=== PATIENT | female | born 1990 | race Caucasian/White ===

== ENCOUNTER 2016-06-13 01:09 | Emergency (ER) | payer SELFPAY ==
[~2016-06-13] VITALS: Ht 162.6 cm; Wt 71.1 kg
[~2016-06-13 01:09] MED LIST: SULF800T23 PO
[2016-06-13 01:11] VITALS: TEMP 36.7; Ht 162.6 cm; Wt 71.1 kg
[2016-06-13 02:25] LABS: BASO % 0.1 %; BASO ABS # 0.01 K/uL (0-0.2); COMPLETE YES; EOS % 0.6 %; HEMATOCRIT 43.5 % (37-47); IG% 0.2 %; LYMPH % 21.3 %; LYMPH ABS # 2.53 K/uL (1.2-3.4); MEAN CELL VOLUME 91.6 fL (80-100); MEAN CORPUSCULAR HEMOGLOBIN 32.4 pg (25-34); MEAN CORPUSCULAR HGB CONC 35.4 g/dl (32-36); MEAN PLATELET VOLUME 12.1 fL (7.4-10.4); MONO % 6.1 %; NEUT % 71.7 %; PLATELET COUNT 205 K/uL (130-400); RED BLOOD COUNT 4.75 M/uL (4.2-5.4); WHITE BLOOD COUNT 11.88 K/uL (4.8-10.8)
[2016-06-13 02:46] LABS: BUN/CREATININE RATIO 8.1 (10-20); CALCIUM 8.6 mg/dl (8.5-10.1); CREATININE 0.85 mg/dl (0.60-1.20); POTASSIUM 3.5 mmol/L (3.5-5.1)
[2016-06-13 02:56] LABS: THYROID STIMULATING HORMONE 1.05 uIu/ml (0.300-4.500)
[2016-06-13 03:03] LABS: ACETAMINOPHEN < 2 ug/ml (10-30)
[2016-06-13 03:43] LABS: BENZODIAZEPINE, URINE NEG (NEG); COCAINE,URINE NEG (NEG); PHENCYCLIDINE, URINE NEG (NEG)
[2016-06-13 03:50] LABS: MANUAL MICROSCOPIC REQUIRED? YES; URINE APPEARANCE CLOUDY (CLEAR); URINE BILIRUBIN NEG (NEG); URINE COLOR RED; URINE NITRITE NEG (NEG); URINE PH 6.5 (4.5-7.5); UROBILINOGEN NEG (NEG)
[2016-06-13 03:51] LABS: REVIEW REQ? NO
[2016-06-13 03:52] LABS: URINE BACTERIA NEG (NEG); URINE RBC >30 /hpf (0-4); ZZUR CULT IF INDIC CLEAN CATCH NO
[2016-06-13 04:51] VITALS: BP 126/77; PULSE 83; O2SAT 97
--- NOTE | 2016-06-13 05:27 | EMERGENCY ROOM VISIT NOTE ---
History Report prepared by Floyd: Alex Herrera Under the Supervision of: Dr. Meredith Chau M.D. First contact with patient: 01:55 Chief Complaint: MENTAL HEALTH EVALUATION Stated Complaint: MENTAL HEALTH History of Present Illness This HPI is limited due to poor patient cooperation. The patient is a 26 year old female who presents to the Emergency Room for a mental health evaluation following a dispute with her ex-boyfriend that occurred shortly prior to arrival. The patient states that the ex-boyfriend kept entering the bathroom while she was trying to take a shower. She became increasingly agitated as the boyfriend continued to enter the bathroom unwelcomed. The boyfriend states that the patient became increasingly angry and claimed that she was going to cut herself. He then phoned the police who brought the patient to the emergency department. Source of History: patient Onset: Shortly INTERNET CONSULTANT Position: other (Psych) Quality: other (Mental Health Evaluation) Note: Boyfriend states that patient threatened to cut herself. Review of Systems See HPI for pertinent positives & negatives. A total of 10 systems reviewed and were otherwise negative. Past Medical & Surgical Medical Problems: (1) 2 previous pregnancies Family History Patient reports no known family medical history. Social History Smoking Status: Current Every Day Smoker Alcohol Use: none Drug Use: none Marital Status: single Housing Status: lives with family Occupation Status: employed Current/Historical Medications No Active Prescriptions or Reported Meds Allergies Coded Allergies: No Known Allergies (Unverified , 06/13/16) Physical Exam Vital Signs Date Time Temp Pulse Resp B/P Pulse Ox O2 Delivery O2 Flow Rate FiO2 06/13/16 04:51 83 20 126/77 97 Room Air 06/13/16 03:44 90 16 123/78 97 Room Air 06/13/16 01:11 36.7 100 18 135/93 100 Room Air Pain Rating (0-10): 0 Physical Exam Vital signs reviewed. General: Well-appearing female, in no significant distress. HEENT: Poor Dentition. No scleral icterus, PERRLA, neck supple. Atraumatic. Cardiovascular: Regular rate and rhythm, no extra sounds. Pulmonary: Clear to auscultation bilaterally, normal work of breathing. Abdomen: Soft, nontender, nondistended, positive bowel sounds. Musculoskeletal: Atraumatic, no peripheral edema. Neurologic: Patient awake alert and oriented x 3, full strength in all 4 extremities. Cranial nerves 2 through 12 grossly intact. Skin: Warm, dry, no rash Psych: No suicidal, no homicidal ideation. Medical Decision & Procedures Laboratory Results 06/13/16 02:16 Red Blood Count 4.75, Mean Corpuscular Volume 91.6, Mean Corpuscular Hemoglobin 32.4, Mean Corpuscular Hemoglobin Concent 35.4, Mean Platelet Volume 12.1, Neutrophils (%) (Auto) 71.7, Lymphocytes (%) (Auto) 21.3, Monocytes (%) (Auto) 6.1, Eosinophils (%) (Auto) 0.6, Basophils (%) (Auto) 0.1, Neutrophils # (Auto) 8.52, Lymphocytes # (Auto) 2.53, Monocytes # (Auto) 0.73, Eosinophils # (Auto) 0.07, Basophils # (Auto) 0.01 06/13/16 02:16 Test 06/13/16 02:16 06/13/16 02:41 White Blood Count 11.88 K/uL (4.8-10.8) Red Blood Count 4.75 M/uL (4.2-5.4) Hemoglobin 15.4 g/dL (12.0-16.0) Hematocrit 43.5 % (37-47) Mean Corpuscular Volume 91.6 fL (80-100) Mean Corpuscular Hemoglobin 32.4 pg (25-34) Mean Corpuscular Hemoglobin Concent 35.4 g/dl (32-36) Platelet Count 205 K/uL (130-400) Mean Platelet Volume 12.1 fL (7.4-10.4) Neutrophils (%) (Auto) 71.7 % Lymphocytes (%) (Auto) 21.3 % Monocytes (%) (Auto) 6.1 % Eosinophils (%) (Auto) 0.6 % Basophils (%) (Auto) 0.1 % Neutrophils # (Auto) 8.52 K/uL (1.4-6.5) Lymphocytes # (Auto) 2.53 K/uL (1.2-3.4) Monocytes # (Auto) 0.73 K/uL (0.11-0.59) Eosinophils # (Auto) 0.07 K/uL (0-0.5) Basophils # (Auto) 0.01 K/uL (0-0.2) RDW Standard Deviation 42.3 fL (36.4-46.3) RDW Coefficient of Variation 12.5 % (11.5-14.5) Immature Granulocyte % (Auto) 0.2 % Immature Granulocyte # (Auto) 0.02 K/uL (0.00-0.02) Anion Gap 7.0 mmol/L (3-11) Est Creatinine Clear Calc Drug Dose 95.3 ml/min Estimated GFR () 108.1 Estimated GFR (Non- 93.2 BUN/Creatinine Ratio 8.1 (10-20) Calcium Level 8.6 mg/dl (8.5-10.1) Total Bilirubin 0.3 mg/dl (0.2-1) Direct Bilirubin 0.1 mg/dl (0-0.2) Aspartate Amino Transf (AST/SGOT) 8 U/L (15-37) Alanine Aminotransferase (ALT/SGPT) 15 U/L (12-78) Alkaline Phosphatase 75 U/L (45-117) Total Protein 7.5 gm/dl (6.4-8.2) Albumin 3.9 gm/dl (3.4-5.0) Thyroid Stimulating Hormone (TSH) 1.050 uIu/ml (0.300-4.500) Salicylates Level 4.4 mg/dl (2.8-20) Acetaminophen Level < 2 ug/ml (10-30) Ethyl Alcohol mg/dL < 3.0 mg/dl (0-3) Urine Color RED Urine Appearance CLOUDY (CLEAR) Urine pH 6.5 (4.5-7.5) Urine Specific Limestone 1.010 (1.000-1.030) Urine Protein TRACE (NEG) Urine Glucose (UA) NEG (NEG) Urine Ketones NEG (NEG) Urine Occult Blood 3+ (NEG) Urine Nitrite NEG (NEG) Urine Bilirubin NEG (NEG) Urine Urobilinogen NEG (NEG) Urine Leukocyte Esterase NEG (NEG) Urine RBC >30 /hpf (0-4) Urine WBC 1-5 /hpf (0-5) Urine Epithelial Cells 5-10 /lpf (0-5) Urine Bacteria NEG (NEG) Urine Test NEG (NEG) Urine Opiates Screen NEG (NEG) Urine Methadone, Qualitative NEG (NEG) Urine Barbiturates NEG (NEG) Urine Phencyclidine (PCP) Level NEG (NEG) Ur Amphetamine/Methamphetamine NEG (NEG) MDMA (Ecstasy) Screen NEG (NEG) Urine Benzodiazepines Screen NEG (NEG) Urine Cocaine Metabolite NEG (NEG) Urine Marijuana (THC) NEG (NEG) Laboratory results per my review. ED Course 0259: Past medical records reviewed. The patient was evaluated in room A7. A complete history and physical examination was performed. 0524: Upon reevaluation, the patient has agreed to a safety plan developed with the aid of the case manger. The patient will be discharged home. Medical Decision The patient's history was concerning for possible psychiatric disturbance. Differential diagnosis: Etiologies such as mood disorder, infection, hypoglycemia, electrolyte abnormalities, cardiac sources, intracerebral event, toxicologic, neurologic, as well as others were entertained. This patient was evaluated and appeared to be in no significant distress. Patient was medically cleared and evaluated by mental health. The patient denies any suicidal ideation or intent tonight. She denies any cutting. Patient states she has never been under mental health treatment, nor does she take any medications. She does have an interesting social situation where she lives with her ex boyfriend and 2 children, but intends to move in with her new boyfriend shortly. There does seem to be some emotional turmoil in the household. Patient denies any safety issues at this time. She was discharged to home and will follow-up with her primary care provider this week for reevaluation. She will return to the ER for worsening of symptoms or any medical concerns. Impression Primary Impression: Mental health-related complaint Scribe Attestation The scribe's documentation has been prepared under my direction and personally reviewed by me in its entirety. I confirm that the note above accurately reflects all work, treatment, procedures, and medical decision making performed by me. Departure Information Dispostion Home / Self-Care Prescriptions No Active Prescriptions or Reported Meds Referrals Can Help Forms HOME CARE DOCUMENTATION FORM, IMPORTANT VISIT INFORMATION Patient Instructions My [facility] Additional Instructions Diagnosis: Mental health assessment Please follow-up with your primary care provider this week for reevaluation. Schedule an appointment with a dentist as soon as possible for a dental cleaning and evaluation of your tooth pain. Return to the emergency department for worsening of symptoms or any medical concerns.
[2016-06-18 19:28] LABS: SYNTHETIC CANNABINOIDS QL URIN NEGATIVE (Negative)
== END 2016-06-13 05:07 | disposition home or self-care (01) ==
LOC: C.EDB 01:10 → C.EDA 05:07
DX: Z00.8 Encounter for other general examination (principal); F17.200 Nicotine dependence, unspecified, uncomplicated

== ENCOUNTER 2016-07-07 18:51 | Emergency (ER) | payer SELFPAY ==
[~2016-07-07] VITALS: Ht 162.6 cm; Wt 72.8 kg
[2016-07-07 18:54] VITALS: BP 128/81; PULSE 78; TEMP 36.8; O2SAT 97; Ht 162.6 cm; Wt 72.8 kg
[2016-07-07] MEDS ORDERED: HYDR-5688 PO (19:14)
[2016-07-07] MEDS ORDERED: PENI500T2 PO (19:14)
--- NOTE | 2016-07-07 19:15 | EMERGENCY ROOM VISIT NOTE ---
ED Visit Note First contact with patient: 19:01 CHIEF COMPLAINT: Right lower dental pain 1 week HISTORY OF PRESENT ILLNESS: Patient is a 26-year-old white female who presents the emergency department for evaluation of right lower dental pain. She reports that she believes that she has a cavity, and has been bad for several months. It only became painful this week. She has been taking 800 mg of ibuprofen and using topical Orajel, but still reports pain that she rates a 10/ 10 presently. She does not have dental insurance and has not contacted a dentist. She denies any possible fluid in her mouth, no facial swelling or fever. REVIEW OF SYSTEMS: Review of systems as per HPI. All other systems reviewed were negative. At least 6 systems reviewed. PMH: Electronic medical records are reviewed and summarized as above/below. See Problem List. SOCIAL HISTORY: Patient lives at home. Smoker. Unemployed. PHYSICAL EXAM: Vital Signs: Reviewed Nurse's notes. CONSTITUTIONAL: Patient is a well-appearing 18-year-old white female who is awake and alert and in no acute distress. Vital signs are stable. EARS: Tympanic membranes intact, not inflamed, have normal contour. External canals clear. MOUTH: Overall the patient has poor dentition. The right lower rear molar in question has an obvious cavity, and is tender to percussion. There is slight swelling along the gumline although no focal abscess. Mucous membranes moist, no lesions, tongue and gums appear normal. THROAT: No pharyngeal injection, exudates, or tonsillar hypertrophy. Airway is patent. No trismus noted. FACE: No facial swelling is appreciated. No cellulitic changes. NECK: No lymphadenopathy. . ED course: The patient was seen and assessed as above. She does not have any evidence for facial cellulitis, drainable abscess or Erickson's angina. She will be placed on Pen-Vee K and was given a small prescription for [place] to use for pain until she can follow-up with a dentist. Patient was reviewed in the [facility] Prescription Drug Monitoring Program, and there was no record noted for this patient. Problem List Medical Problems: (1) 2 previous pregnancies Status: Resolved (2) Lower abdominal pain Status: Resolved (3) Miscarriage Status: Resolved (4) Miscarriage Status: Resolved (5) Urinary tract infection Status: Resolved Current/Historical Medications Scheduled Penicillin V Potassium (Veetids), 500 MG PO QID [Oragel], 1 APPLN BU PRN Scheduled PRN Hydrocodone/Acetaminophen 5MG/325MG ([place] 5MG/325MG), 1-2 TABLETS PO Q4 PRN for Pain Ibuprofen (Advil), 800 MG PO TID PRN for Pain Allergies Coded Allergies: No Known Allergies (Unverified , 06/13/16) Vital Signs Date Time Temp Pulse Resp B/P Pulse Ox O2 Delivery O2 Flow Rate FiO2 07/07/16 18:54 36.8 78 20 128/81 97 Room Air Departure Information Impression Primary Impression: Dentalgia Prescriptions Hydrocodone/Acetaminophen 5MG/325MG ([place] 5MG/325MG) Tab 1-2 TABLETS PO Q4 Y for Pain, #20 TAB For Initial Treatment Prov: Jessica Mercado PA 07/07/16 Penicillin V Potassium (VEETIDS) 500 Mg Tab 500 MG PO QID, #40 TAB Prov: Jessica Mercado PA 07/07/16 Referrals No Doctor, Assigned (PCP) Casper Parada D.M.D. Patient Instructions My [facility] Additional Instructions Penicillin 500mg: Take one pill four times daily for 10 days for your dental infection. All antibiotics can cause diarrhea. If this occurs and you feel worse or it does not resolve in 1-2 days follow up with your doctor or return to the Emergency Department as this could be signs of serious underlying problems. Any medication can cause an allergic reaction, stop the pills immediately and return to the ER for rash, hives, breathing difficulties, or swelling. Ibuprofen(Motrin, Advil) may be used for fever or pain. Use 600mg every six hours as needed. Take with food. Avoid using more than 2400mg in a 24 hour period. Do not use 2400mg per day for more than three consecutive days without physician direction. Prolonged inappropriate use can lead to stomach upset or ulcers. (AND/OR) Acetaminophen(Tylenol) may be used for fever or pain. Use 1000mg every six hours as needed. Avoid using more than 4000mg in a 24 hour period. Hydrocodone/Acetaminophen ([place]) 5/325 mg: Take 1-2 pills every four hours for breakthrough pain. Avoid alcohol, operating machinery or dangerous equipment, working on ladders or roofs, DRIVING, or situations where being under the influence may be dangerous. It is recommended to use an [id number] stool softener such as Colace, 100mg twice daily while taking this medication to avoid constipation. Saltwater gargles after meals and before bedtime. Soft foods. Orajel/Anbesol/clove oil as needed for discomfort. Followup with your dentist for definitive management. You may also follow up with your primary care physician for pain/care management until you can be seen by your dentist.
[2016-07-07] MEDS ORDERED: IBUP-1050 PO (19:36)
[2016-07-07] MEDS ORDERED: ORAGEL BU (19:36)
== END 2016-07-07 19:27 | disposition home or self-care (01) ==
LOC: C.EDB 18:53 → C.EDD 19:27
DX: K08.89 Other specified disorders of teeth and supporting structures (principal); F17.200 Nicotine dependence, unspecified, uncomplicated

== ENCOUNTER 2016-07-25 16:07 | Emergency (ER) | payer SELFPAY ==
[~2016-07-25] VITALS: Ht 162.6 cm; Wt 71.6 kg
[~2016-07-25 16:07] MED LIST changes: +HYDR-5688 PO; +IBUP-1050 PO; +ORAGEL BU; -SULF800T23 PO
[2016-07-25 16:09] VITALS: TEMP 37; Ht 162.6 cm; Wt 71.6 kg
[2016-07-25] MEDS ORDERED: IBUP200T52 PO (16:21)
[2016-07-25] MEDS ORDERED: PENI-82 PO (16:25)
--- NOTE | 2016-07-25 16:32 | EMERGENCY ROOM VISIT NOTE ---
ED Visit Note First contact with patient: 16:12 CHIEF COMPLAINT: Toothache HISTORY OF PRESENT ILLNESS: This 26-year-old female patient presented to the emergency department with a progressive toothache for past 2 days. The patient believes it is coming from a right lower molar. The pain is now steady and severe and radiates to the face. The patient has a dentist appointment set up in 2 weeks. They rate their pain a 8/10 and the ibuprofen and Tylenol they have been taking has not relieved the pain. Denies facial swelling or fever. The patient denies any discharge from the mouth. REVIEW OF SYSTEMS: A 6 system review of systems was completed with positives and pertinent negatives listed in the HPI. ALLERGIES: No known allergies MEDICATIONS: No chronic medications PMH: Otherwise healthy SOCIAL HISTORY: Lives locally PHYSICAL EXAM: Vitals are noted on the nurse's note and reviewed by myself. Vital signs stable. GENERAL: White female, in no acute distress, nondiaphoretic, well-developed well -nourished. Mouth: The right lower second molar tooth is very carious and the gum is swollen and tender around it, without any discharge or signs of an abscess. The remainder of the pharynx and tonsils are without erythema, edema, or exudate. The airway is patent. There is no facial swelling, cervical or submandibular lymphadenopathy. The patient appears uncomfortable and in pain. The patient has overall poor dental hygiene. EARS: External auditory canals clear, tympanic membranes pearly suero without erythema or effusion bilaterally. HEART: Regular rate and rhythm without murmur gallop or rub LUNG: Clear to auscultation bilateral ED COURSE: Physical exam and history were performed. Nursing notes and EMR were reviewed. The patient appears to have dental pain for the past 2 days. The patient has been seen and evaluated for this complaint earlier this month. She does not have evidence of abscess or impending airway obstruction. There is no facial cellulitis. The patient will be treated with Pen-Vee K and over- the-counter analgesics. She does have an upcoming dental appointment, and was asked to keep this. She was otherwise invited back to the ER with any new, worsening, or concerning symptoms. Problem List Medical Problems: (1) 2 previous pregnancies Status: Resolved (2) Lower abdominal pain Status: Resolved (3) Miscarriage Status: Resolved (4) Miscarriage Status: Resolved (5) Urinary tract infection Status: Resolved Current/Historical Medications Scheduled Ibuprofen (Advil), 800 MG PO TID Penicillin V Potassium (Veetids), 500 MG PO QID Allergies Coded Allergies: No Known Allergies (Unverified , 07/25/16) Vital Signs Date Time Temp Pulse Resp B/P Pulse Ox O2 Delivery O2 Flow Rate FiO2 07/25/16 16:09 37.0 89 18 132/75 99 Room Air Departure Information Impression Primary Impression: Pain, dental Dispostion Home / Self-Care Condition GOOD Prescriptions Penicillin V Potassium (Veetids) 500 Mg Tab 500 MG PO QID for 10 Days, #40 TAB Prov: Km Redd PA-C 07/25/16 Forms HOME CARE DOCUMENTATION FORM, IMPORTANT VISIT INFORMATION Patient Instructions My [facility] Additional Instructions You were seen and evaluated today on an emergency basis only. This is not a substitute for, or an effort to provide, complete comprehensive medical care. It is not possible to recognize and treat all injuries or illnesses in a single emergency department visit. For this reason it is recommended that you followup with your dentist as scheduled for definitive care. Take Pen-Vee K 500 mg 4 times daily for the next 10 days. For baseline pain relief you may alternate ibuprofen and acetaminophen every 4 hours for pain control. Take 600 mg ibuprofen (Advil) and then 4 hours later take 1000 mg acetaminophen (Tylenol). Do not take more than 3000 mg acetaminophen in a single day. You are welcome to return to the emergency department anytime with new, worsening, or concerning symptoms.
[2016-07-25 16:40] VITALS: BP 130/71; PULSE 77; O2SAT 97
== END 2016-07-25 16:41 | disposition home or self-care (01) ==
LOC: C.EDB 16:08 → C.EDD 16:41
DX: K08.89 Other specified disorders of teeth and supporting structures (principal)

== ENCOUNTER 2016-12-03 09:50 | Emergency (ER) | payer OTHER ==
[~2016-12-03] VITALS: Ht 162.6 cm; Wt 82.6 kg
[~2016-12-03 09:50] MED LIST changes: -HYDR-5688 PO; -IBUP-1050 PO; +IBUP200T52 PO; -ORAGEL BU
[2016-12-03 09:57] VITALS: TEMP 36.8; Ht 162.6 cm; Wt 82.6 kg
[2016-12-03] MEDS ORDERED: DEXT1CAP9 PO (10:12)
[2016-12-03] MEDS ORDERED: PENICILLIN V POTASSIUM 250 MG TAB PO ONE (11:00)
[2016-12-03] MEDS ORDERED: PENI500T2 PO (11:06)
--- NOTE | 2016-12-03 11:07 | EMERGENCY ROOM VISIT NOTE ---
ED Visit Note First contact with patient: 10:09 CHIEF COMPLAINT: Right lower dental pain times several days HISTORY OF PRESENT ILLNESS: Patient is a 6 month 18-year-old white female who presents to the emergency department for evaluation of right lower dental pain. She reports that she chipped the tooth several months ago, it has a filling in place. She states that it has become progressively more poor painful, and worsened in the last couple of days. She denies any drainage or discharge from the area. She did have an appointment with [facility], but was unable to make it, and now has to wait until she can get back on the list for a dental appointment. She reports that she has been rinsing with mouthwash and using ibuprofen for discomfort. She denies any facial swelling or fever. She is a smoker. She rates her pain a 6/10. She does also note that she has had some minor congestion and a cough for the last 1-2 days. She is using over-the- counter medications including DayQuil and TheraFlu for her symptoms. REVIEW OF SYSTEMS: Review of systems as per HPI. All other systems reviewed were negative. At least 6 systems reviewed. PMH: Electronic medical records are reviewed and summarized as above/below. See Problem List. SOCIAL HISTORY: Patient lives at home with her family. Smoker. PHYSICAL EXAM: Vital Signs: Reviewed Nurse's notes. CONSTITUTIONAL: Patient is a well-appearing gravid, 26-year-old white female who is awake and alert and in no acute distress. Vital signs are stable. EARS: Tympanic membranes intact, not inflamed, have normal contour. External canals clear. MOUTH: Overall the patient has poor dentition. The right lower rear molar in question has an obvious cavity, and is tender to percussion. There is a fracture through the medial cusp. There is slight swelling along the gumline although no focal abscess. Mucous membranes moist, no lesions, tongue and gums appear normal. THROAT: No pharyngeal injection, exudates, or tonsillar hypertrophy. Airway is patent. No trismus noted. FACE: No facial swelling is appreciated. No cellulitic changes. NECK: No lymphadenopathy. HEART: Regular rate and rhythm. LUNGS: Clear to auscultation. ED course: The patient was seen and examined as above. She does have prior visits to the emergency department for dental pain. She reports that she is being followed by [facility] for her . She will be placed on a course of amoxicillin. She was encouraged to use acetaminophen for pain. With regards to her upper respiratory illnesses suspect that this is viral in nature. She was encouraged to use [id number] medications for symptomatic relief. She can follow-up with [facility] if her symptoms are not improving. She does not have any evidence for facial cellulitis or Erickson's angina. Medication reconciliation: I attest that I have personally reviewed the patient' s current medication list. Blood pressure screening : Patient was found to have normal blood pressure on screening and does not require follow-up. Problem List Medical Problems: (1) 2 previous pregnancies Status: Resolved (2) Lower abdominal pain Status: Resolved (3) Miscarriage Status: Resolved (4) Miscarriage Status: Resolved (5) Urinary tract infection Status: Resolved Current/Historical Medications Scheduled Dextromethorphan-Phenylephrine (Vicks Dayquil Cold & Flu), 1 CAP PO Q4 Penicillin V Potassium (Veetids), 500 MG PO QID Allergies Coded Allergies: No Known Allergies (Unverified , 12/03/16) Vital Signs Date Time Temp Pulse Resp B/P (MAP) Pulse Ox O2 Delivery O2 Flow Rate FiO2 12/03/16 11:21 82 20 110/58 98 12/03/16 11:05 82 20 110/58 98 Room Air 12/03/16 09:57 36.8 76 18 111/68 96 Room Air Medications Administered Medications (Trade) Dose Ordered Sig/Demetrius Route Start Time Stop Time Status Last Admin Dose Admin Penicillin V Potassium (Veetids Tab) 500 mg ONE ONCE PO 12/03/16 11:00 12/03/16 11:01 DC 12/03/16 11:04 500 MG Departure Information Impression Primary Impression: Pain, dental Prescriptions Penicillin V Potassium (VEETIDS) 500 Mg Tab 500 MG PO QID, #40 TAB Prov: Jessica Mercado PA 12/03/16 Referrals No Doctor, Assigned (PCP) Patient Instructions My [facility] Additional Instructions Penicillin 500mg: Take one pill four times daily for 10 days for your dental infection. All antibiotics can cause diarrhea. If this occurs and you feel worse or it does not resolve in 1-2 days follow up with your doctor or return to the Emergency Department as this could be signs of serious underlying problems. Any medication can cause an allergic reaction, stop the pills immediately and return to the ER for rash, hives, breathing difficulties, or swelling. Acetaminophen(Tylenol) may be used for fever or pain. Use 1000mg every six hours as needed. Avoid using more than 4000mg in a 24 hour period. Pseudoephedrine(Sudaphed): 30-60mg every 6 hours as needed for nasal congestion. Do not take this with other stimulant products or supplements. Guaifenesin (Mucinex) : Take 1200 mg every 12 hours as needed for nasal/chest congestion, to help thin secretions. Saltwater gargles after meals and before bedtime. Soft foods. Orajel/Anbesol/clove oil as needed for discomfort. Followup with your dentist for definitive management. You may also follow up with your primary care physician for pain/care management until you can be seen by your dentist.
[2016-12-03 11:21] VITALS: BP 110/58; PULSE 82; O2SAT 98
== END 2016-12-03 11:18 | disposition home or self-care (01) ==
LOC: C.EDB 09:53 → C.EDC 11:18
DX: K08.89 Other specified disorders of teeth and supporting structures (principal); Z33.1 Pregnant state, incidental; F17.210 Nicotine dependence, cigarettes, uncomplicated; Z87.440 Personal history of urinary (tract) infections

== ENCOUNTER 2016-12-26 07:38 | Emergency (ER) | payer OTHER ==
[~2016-12-26] VITALS: Ht 162.6 cm; Wt 84.6 kg
[~2016-12-26 07:38] MED LIST changes: +DEXT1CAP9 PO; -IBUP200T52 PO
[2016-12-26 07:42] VITALS: TEMP 36.6; Ht 162.6 cm; Wt 84.6 kg
[2016-12-26] MEDS ORDERED: ACET325T96 PO (08:10)
[2016-12-26] MEDS ORDERED: ACET-749 PO (08:24)
[2016-12-26 09:33] VITALS: BP 106/53; PULSE 80; O2SAT 97
--- NOTE | 2016-12-26 13:46 | EMERGENCY ROOM VISIT NOTE ---
ED Visit Note First contact with patient: 07:44 CHIEF COMPLAINT: I'm having tooth pain. HISTORY OF PRESENT ILLNESS: Ms. Dunn is a 26-year-old white female who ambulates into the ED accompanied by male friend complaining of right maxillary dental pain. She reports a progressive dental pain for the last 6 months hours over the right maxillary molars. The pain is now constant but has waxed and waned in intensity. She is being referred by her frozen yogurt maker to a dentist. It should be noted that she has been seen here twice for dental pain; the first time was 6 months ago and the last time was a month ago. Currently she describes her discomfort as a pressure sensation. She currently rates her discomfort 4/10. Her pain is radiating into the right temporal area. She has been using [id number] acetaminophen and Orajel with no relief of her discomfort. She has not identified any aggravating factors related to the pain. Associated with her pain she reports she is having a right sided headache which I think is radiation of her discomfort. She reports intermittently over the last 6 months she has noted swelling; on her last visit she was placed on amoxicillin for antibiotic coverage and reports the swelling has not returned. She denies any associated symptoms including fevers, chills, sweats, facial swelling, sore throat, difficulty swallowing, voice changes, drooling. REVIEW OF SYSTEMS: As noted above in History of Present Illness. PMH: Patient denies. CURRENT MEDICATION: Patient denies.. ALLERGIES TO MEDICATION: Patient denies. SOCIAL HISTORY: Patient is not employed; she feels safe in her home environment ; she admits to tobacco use. PHYSICAL EXAM: Vital Signs: Date Time Temp Pulse Resp B/P (MAP) Pulse Ox O2 Delivery O2 Flow Rate FiO2 12/26/16 09:33 80 18 106/53 97 12/26/16 07:42 36.6 86 18 139/74 98 Room Air General: 26 year-old white female in no acute distress, nontoxic appearing, afebrile and hemodynamically stable. Neurological: Awake, alert and oriented to person, place and time. Answering questions appropriately and following commands. Skin: Warm, dry and pink. No soft tissue lesions, rashes, or trauma noted. HEENT: Atraumatic and normocephalic. Oral cavity is moist and pink. Airway is patent. Uvula is midline and no abscesses are seen. Speech is normal. No drooling. Patient has multiple decaying teeth throughout her mouth. Her right maxillary teeth 2 through 4 are mildly tender to palpation. No abscesses, erythema or edema identified. No cervical or submandibular lymphadenopathy. ED COURSE: Patient is assessed as noted above. Patient is educated about her findings and instructed on her treatment plan; she verbalizes understanding and agreement with this plan. CLINIC IMPRESSION: Dental pain. DISPOSITION: Patient discharged home in stable condition; prior to departure she was reassessed and subjectively reported she was feeling the same. PLAN: Comfort measures were discussed including a sliding pain scale of acetaminophen and Tylenol No. 3 . She was warned that Tylenol 3 is a narcotic and once taking this medication she should not drink, drive or do any activities that require her full attention. Patient was encouraged to followup with an history sinus practical for definitive care and treatment. Patient was encouraged to return the ED for uncontrolled pain, facial swelling, fevers or any new/concerning symptoms.
== END 2016-12-26 09:34 | disposition home or self-care (01) ==
LOC: C.EDB 07:39 → C.EDA 09:34
DX: K08.89 Other specified disorders of teeth and supporting structures (principal); F17.200 Nicotine dependence, unspecified, uncomplicated

== ENCOUNTER → 2017-01-03 | Outpatient (CLI) | payer OTHER ==
[~2017-01-03] MED LIST changes: +ACET-749 PO; +ACET325T96 PO; -DEXT1CAP9 PO
[2017-01-03 13:26] LABS: BASO % 0.1 %; BASO ABS # 0.01 K/uL (0-0.2); COMPLETE YES; EOS % 0.6 %; HEMATOCRIT 32.7 % (37-47); IG% 0.9 %; LYMPH % 15.8 %; LYMPH ABS # 2.34 K/uL (1.2-3.4); MEAN CELL VOLUME 92.1 fL (80-100); MEAN CORPUSCULAR HEMOGLOBIN 31.3 pg (25-34); MEAN CORPUSCULAR HGB CONC 33.9 g/dl (32-36); MEAN PLATELET VOLUME 11.1 fL (7.4-10.4); MONO % 5.7 %; NEUT % 76.9 %; PLATELET COUNT 203 K/uL (130-400); RED BLOOD COUNT 3.55 M/uL (4.2-5.4); WHITE BLOOD COUNT 14.83 K/uL (4.8-10.8)
[2017-01-03 15:30] LABS: GTGD 50 Grams
== END | disposition home or self-care (01) ==
LOC: C.LAB1850 11:07
PROVIDERS: ATTEND Obstetrics & Gynecology
DX: Z34.93 Encounter for supervision of normal pregnancy, unspecified, third trimester (principal)

== ENCOUNTER → 2017-01-03 | Outpatient (CLI) | payer OTHER ==
[2017-01-03 11:20] LABS: URINE APPEARANCE CLOUDY (CLEAR); URINE BILIRUBIN NEG (NEG); URINE COLOR YELLOW; URINE EPITHELIAL CELL AUTO >30 /lpf (0-5); URINE NITRITE NEG (NEG); URINE PH 7.5 (4.5-7.5); URINE SPECIFIC GRAVITY 1.009 (1.000-1.030); UROBILINOGEN NEG (NEG)
[2017-01-03 11:41] LABS: MANUAL MICROSCOPIC REQUIRED? NO; REVIEW REQ? NO
[2017-01-03 11:42] LABS: BENZODIAZEPINE, URINE NEG (NEG); COCAINE,URINE NEG (NEG); PHENCYCLIDINE, URINE NEG (NEG)
== END | disposition home or self-care (01) ==
LOC: C.LABSPEC 10:54
PROVIDERS: ATTEND Obstetrics & Gynecology
DX: Z34.93 Encounter for supervision of normal pregnancy, unspecified, third trimester (principal)

== ENCOUNTER → 2017-01-15 | Outpatient (CLI) | payer OTHER ==
[2017-01-20 15:50] LABS: CHLAMYDIA TRACH RNA*** NOT DETECTED (NOT DETECTED); GC (NEIS GONORRHOEAE)RNA** NOT DETECTED (NOT DETECTED)
== END | disposition home or self-care (01) ==
LOC: C.LABSPEC 17:28
PROVIDERS: ATTEND Obstetrics & Gynecology
DX: Z34.93 Encounter for supervision of normal pregnancy, unspecified, third trimester (principal)